=== PATIENT | male | born 1990 | race Caucasian/White ===

== ENCOUNTER 2023-03-14 21:29 | Inpatient (IN) | payer MEDICAID ==
[~2023-03-14] VITALS: Ht 167.6 cm; Wt 68.0 kg
[2023-03-14 22:35] VITALS: BP 137/91; PULSE 111; RESP 20; TEMP 98; O2SAT 98
[2023-03-15] MEDS ORDERED: ONDANSETRON 4 MG/2 ML VIAL IVP ONE ×2 (02:25→16:25)
[2023-03-15] MEDS ORDERED: MORPHINE SULFATE 4 MG/ML SYR IVP ONE (02:25)
[2023-03-15] MEDS ORDERED: NACL 0.9% 2,000 ML IV ONE (02:30)
[2023-03-15 02:35] LABS: BASOPHILS % (AUTO) 0.4 % (0.0-2.0); EOSINOPHILS # (AUTO) 0.2 K/uL (0-0.4); HEMATOCRIT 44.4 % (36-52); HEMOGLOBIN 15.5 g/dL (12.0-18.0); LYMPHOCYTES # (AUTO) 1.7 K/uL (2.0-11.5); LYMPHOCYTES % (AUTO) 25.1 % (20.5-51.1); MEAN CORPUSCULAR HEMOGLOBIN 31 pg (27-31); MEAN CORPUSCULAR HGB CONC 35 g/dL (33-37); MEAN CORPUSCULAR VOLUME 90.1 fL (80-94); MONOCYTES # (AUTO) 0.5 K/uL (0.8-1.0); MONOCYTES % (AUTO) 7.8 % (1.7-9.3); NEUTROPHILS # (AUTO) 4.2 K/uL (1.8-7.7); NEUTROPHILS % (AUTO) 63.7 % (42.2-75.2); PLATELET COUNT (AUTO) 191 K/uL (140-450); RED BLOOD CELL COUNT(AUTO) 4.93 MIL/uL (4.20-6.10); RED CELL DISTRIBUTION WIDTH 13.9 % (11.6-13.7); WHITE BLOOD COUNT (AUTO) 6.6 K/uL (4.8-10.8)
[2023-03-15 02:37] LABS: APPEARANCE,URINE CLOUDY (CLEAR); BILIRUBIN,URINE NEGATIVE (NEGATIVE); BLOOD, URINE NEGATIVE (NEGATIVE); COLOR,URINE YELLOW (YELLOW); LEUKOCYTE ESTERASE ,URINE NEGATIVE (NEGATIVE); NITRITE, URINE NEGATIVE (NEGATIVE); PH,URINE 7.5 (5.0-9.0); PROTEIN,URINE NEGATIVE (NEGATIVE); UGLUCOSE NEGATIVE (NEGATIVE)
[2023-03-15 02:48] LABS: ANION GAP 10.2 (8-16); CALCIUM 9.2 mg/dL (8.5-10.1); CARBON DIOXIDE 31.4 mmol/L (21-32); CREATININE 0.9 mg/dL (0.6-1.3); POTASSIUM 3.6 mmol/L (3.5-5.1)
[2023-03-15 02:54] LABS: ALBUMIN 3.9 g/dL (3.4-5.0); BILIRUBIN,DIRECT 0.2 mg/dL (0.0-0.3); TOTAL BILIRUBIN 0.9 mg/dL (0.0-1.0); TOTAL PROTEIN, SERUM 8.8 g/dL (6.4-8.2)
[2023-03-15] MEDS ORDERED: KETOROLAC 30 MG/ML VIAL IVP ONE (05:05)
[2023-03-15] MEDS ORDERED: PIPERACILLIN/TAZOBACTAM 3.375 GM in DEXTROSE 5% 50 ML IV ONE (07:00)
[2023-03-15 07:33] VITALS: O2SAT 100
[2023-03-15] MEDS ORDERED: PIPERACILLIN/TAZOBACTAM 3.375 GM VIAL IV ONE ×2 (07:33→07:35)
[2023-03-15 07:54] LABS: INR 1.11 (0.8-1.2); PARTIAL THROMBOPLASTIN TIME 28.9 secs (22-35.6); PROTHROMBIN TIME 11.6 secs (10.8-13.4)
[2023-03-15 08:10] LABS: LACTIC ACID 0.6 mmol/L (0.4-2.0)
[2023-03-15] MEDS ORDERED: NACL 0.9% 1,000 ML IV SCH (08:15)
[2023-03-15] MEDS ORDERED: MORPHINE SULFATE 2 MG/ML SYR IVP PRN ×3 (08:15→17:20)
[2023-03-15] MEDS ORDERED: ACETAMINOPHEN 325 MG TAB PO PRN (08:15)
[2023-03-15] MEDS: LEVOFLOXACIN 750 MG/D5W PREMIX 150 ML IV SCH (08:38)
[2023-03-15 09:33] VITALS: O2SAT 98
[2023-03-15 11:33] VITALS: O2SAT 98
[2023-03-15 13:33] VITALS: O2SAT 98
[2023-03-15 15:33] VITALS: O2SAT 100
[2023-03-15] MEDS ORDERED: LIDOCAINE/EPI MPF 1%1:200000 30 ML VIAL INJ ONE (15:53)
[2023-03-15] MEDS ORDERED: BUPIVACAINE-MPF 0.25% 30 ML VIAL INJ ONE (15:53)
[2023-03-15] MEDS ORDERED: ACETAMINOPHEN 100 ML IV ONE (16:07)
[2023-03-15] MEDS ORDERED: ROCURONIUM 50 MG/5 ML VIAL IV ONE (16:14)
[2023-03-15] MEDS ORDERED: PROPOFOL 200 MG/20 ML VIAL IV ONE ×2 (16:14)
[2023-03-15] MEDS ORDERED: SUCCINYLCHOLINE CHLORIDE 200 MG/10 ML VIAL IVP ONE (16:14)
[2023-03-15] MEDS ORDERED: GLYCOPYRROLATE 0.2 MG/ML VIAL ONE ×2 (16:15)
[2023-03-15] MEDS ORDERED: LIDOCAINE 2% 100 MG/5 ML SYR IVP ONE (16:29)
[2023-03-15] MEDS ORDERED: fentaNYL citrate 0.05 MG/ML VIAL ONE (16:30)
[2023-03-15] MEDS ORDERED: MIDAZOLAM 2 MG/2 ML VIAL ONE (16:30)
[2023-03-15] MEDS ORDERED: ONDANSETRON 4 MG/2 ML VIAL IV PRN (17:20)
[2023-03-15] MEDS ORDERED: HYDROmorphone 1 MG/ML AMP IVP PRN ×2 (17:20→17:45)
[2023-03-15] MEDS ORDERED: MORPHINE SULFATE 4 MG/ML SYR IV PRN (17:20)
[2023-03-15] MEDS ORDERED: ONDANSETRON 4 MG/2 ML VIAL IVP PRN (17:45)
[2023-03-15] MEDS: LACTATED RINGERS 1,000 ML IV SCH (17:45)
[2023-03-15 20:00] VITALS: BP 119/63; PULSE 87; RESP 18; TEMP 98.2; O2SAT 100; O2SAT 99
[2023-03-16] MEDS: LACTATED RINGERS 1,000 ML IV SCH ×3 (02:05→15:06)
[2023-03-16] MEDS ORDERED: NACL 0.9% 1,000 ML IV SCH (02:45)
[2023-03-16 04:07] VITALS: BP 114/81; PULSE 90; PULSE 97; RESP 18; TEMP 98.1; O2SAT 100
[2023-03-16 06:11] LABS: BASOPHILS % (AUTO) 0.1 % (0.0-2.0); HEMATOCRIT 43.7 % (36-52); HEMOGLOBIN 15.2 g/dL (12.0-18.0); LYMPHOCYTES # (AUTO) 0.6 K/uL (2.0-11.5); LYMPHOCYTES % (AUTO) 8.4 % (20.5-51.1); MEAN CORPUSCULAR HEMOGLOBIN 31 pg (27-31); MEAN CORPUSCULAR HGB CONC 35 g/dL (33-37); MEAN CORPUSCULAR VOLUME 90.6 fL (80-94); MONOCYTES # (AUTO) 0.2 K/uL (0.8-1.0); MONOCYTES % (AUTO) 3.2 % (1.7-9.3); NEUTROPHILS # (AUTO) 6.6 K/uL (1.8-7.7); NEUTROPHILS % (AUTO) 88.3 % (42.2-75.2); PLATELET COUNT (AUTO) 217 K/uL (140-450); RED BLOOD CELL COUNT(AUTO) 4.82 MIL/uL (4.20-6.10); RED CELL DISTRIBUTION WIDTH 13.3 % (11.6-13.7); WHITE BLOOD COUNT (AUTO) 7.5 K/uL (4.8-10.8)
[2023-03-16 06:28] LABS: ALBUMIN 3.3 g/dL (3.4-5.0); ANION GAP 13.4 (8-16); CALCIUM 9.1 mg/dL (8.5-10.1); CARBON DIOXIDE 28.6 mmol/L (21-32); CREATININE 0.8 mg/dL (0.6-1.3); TOTAL BILIRUBIN 0.6 mg/dL (0.0-1.0); TOTAL PROTEIN, SERUM 7.9 g/dL (6.4-8.2)
[2023-03-16 08:00] VITALS: BP 133/95; PULSE 85; PULSE 96; RESP 18; TEMP 97.5; O2SAT 96
[2023-03-16] MEDS: LEVOFLOXACIN 750 MG/D5W PREMIX 150 ML IV SCH (09:52)
[2023-03-16 16:00] VITALS: BP 124/83; PULSE 93; RESP 18; TEMP 98.8; O2SAT 100
[2023-03-16] MEDS ORDERED: SUCCINYLCHOLINE CHLORIDE 200 MG/10 ML VIAL IV ONE (16:25)
[2023-03-16] MEDS ORDERED: ROCURONIUM 50 MG/5 ML VIAL IV ONE (16:25)
[2023-03-16] MEDS ORDERED: DEXAMETHASONE 4 MG/ML VIAL IVP ONE (16:25)
[2023-03-16] MEDS ORDERED: SEVOFLURANE 250 ML BTL INH ONE (16:25)
[2023-03-16] MEDS ORDERED: PROPOFOL 200 MG/20 ML VIAL IV ONE (16:25)
[2023-03-16] MEDS ORDERED: NEOSTIGMINE 1:1000 10 MG/10 ML VIAL IM ONE (16:25)
[2023-03-16] MEDS ORDERED: CIPR500T4 PO (16:45)
== END 2023-03-16 18:15 | disposition home or self-care (01) | DRG 234 ==
LOC: MED 21:29 → MTU 03-15 08:13
PROVIDERS: ADMIT Student in an Organized Health Care Education/Training Program; ATTEND Student in an Organized Health Care Education/Training Program
PROC: 0DTJ4ZZ Resection of Appendix, Percutaneous Endoscopic Approach (ICD-10-PCS; principal; 2023-03-15 16:00)
DX: K35.80 Unspecified acute appendicitis (principal)
CPT/HCPCS: 36415; 80048; 80053; 80076; 81003; 82374; 83605; 83690; 85025; 85610; 85730; 86886; 86900; 86901; 87040; 87081; 88304; J0330; J1100; J1170; J1885; J1956; J2001; J2250; J2270; J2405; J2543; J2704; J2710; J3010; J3490; J7030